=== PATIENT | female | born 1980 | race African-American/Black ===

== ENCOUNTER 2020-07-16 11:46 | Emergency (ER) | payer MEDICAID, OTHER ==
[~2020-07-16] VITALS: Ht 165.1 cm; Wt 85.3 kg
[2020-07-16] MEDS ORDERED: methylPREDNISolone SOD SUCC 125 MG/2 ML VL IM ONE (14:30)
[2020-07-16] MEDS ORDERED: EPINEPHrine HCL 1 MG/1 ML AMP SC ONE (14:30)
[2020-07-16 14:47] VITALS: BP 150/82
== END 2020-07-16 15:08 | disposition home or self-care (01) ==
LOC: ER 11:46
DX: T78.40XA Allergy, unspecified, initial encounter (principal); L50.9 Urticaria, unspecified; X58.XXXA Exposure to other specified factors, initial encounter
CPT/HCPCS: 96372; 99284; J0171; J2930

== ENCOUNTER 2021-04-11 | Emergency (ER) | payer MEDICAID ==
[~2021-04-11] VITALS: Ht 165.1 cm; Wt 81.2 kg
[2021-04-11] VITALS: BP 141/103
== END 2021-04-11 04:52 | disposition home or self-care (01) ==
LOC: ER
DX: B02.9 Zoster without complications (principal); I10 Essential (primary) hypertension; Z88.1 Allergy status to other antibiotic agents